=== PATIENT | female | born 1955 | race Caucasian/White ===

== ENCOUNTER 2017-04-05 09:53 | Outpatient (CLI) | payer OTHER ==
--- NOTE | 2017-04-05 11:22 | ULT ---
ABDOMINAL AORTIC ULTRASOUND: History: Pulsatile mass. FINDINGS: Real-time images of the abdominal aorta showed the aorta to be normal in caliber. Proximally it nataliya ures 1.6 cm in AP dimension. The mid portion measures 1.4 cm and distally measures 1.2 cm. IMPRESSION: No evidence of aortic aneurysm. POS: OFF
== END 2017-04-05 09:54 | disposition home or self-care (01) ==
LOC: NAV ULT 09:53
PROVIDERS: ATTEND Family Medicine
DX: Z51.81 Encounter for therapeutic drug level monitoring (principal); R09.89 Other specified symptoms and signs involving the circulatory and respiratory systems; R94.5 Abnormal results of liver function studies; B18.2 Chronic viral hepatitis C
CPT/HCPCS: 76775

== ENCOUNTER 2021-06-02 10:44 | Emergency (ER) | payer OTHER, MEDICARE ==
[2021-06-02] MEDS ORDERED: traMADol HCl 50 MG TAB ONE (12:08)
== END 2021-06-02 12:36 | disposition home or self-care (01) ==
LOC: NAV ERS 10:44
DX: S42.202A Unspecified fracture of upper end of left humerus, initial encounter for closed fracture (principal); W19.XXXA Unspecified fall, initial encounter; E03.9 Hypothyroidism, unspecified; Z86.73 Personal history of transient ischemic attack (TIA), and cerebral infarction without residual deficits
CPT/HCPCS: 70450; 72125

== ENCOUNTER 2021-10-09 17:58 | Emergency (ER) | payer MEDICARE ==
[2021-10-09] MEDS ORDERED: TETANUS, DIPHTHERIA TOX,ADULT (TDVAX) 0.5 ML VIAL IM ONE (18:50)
[2021-10-09] MEDS ORDERED: Boostrix 0.5 ML (Tdap) VIAL ONE (18:51)
== END 2021-10-09 19:25 | disposition home or self-care (01) ==
LOC: NAV ERS 17:58
DX: S01.112A Laceration without foreign body of left eyelid and periocular area, initial encounter (principal); S00.93XA Contusion of unspecified part of head, initial encounter; E03.9 Hypothyroidism, unspecified; Z86.73 Personal history of transient ischemic attack (TIA), and cerebral infarction without residual deficits; Z79.899 Other long term (current) drug therapy; W01.198A Fall on same level from slipping, tripping and stumbling with subsequent striking against other object, initial encounter; Z23 Encounter for immunization
CPT/HCPCS: 12011; 70450; 70486; 90471; 90714; 90715